=== PATIENT | male | born 1970 | race Caucasian/White ===

== ENCOUNTER 2020-04-17 17:31 | Emergency (ER) | payer OTHER ==
[2020-04-17 19:10] LABS: HEMOGLOBIN 13.4 gm/dl (14.0-17.5); RED BLOOD COUNT 4.37 M/UL (4.20-5.50); WHITE BLOOD COUNT 13.4 K/UL (4.5-11.0)
[2020-04-17 19:42] LABS: BUN/CREATININE RATIO 13 (0-10)
[2020-04-17] MEDS ORDERED: TESSALON PERLE100 MG PO (21:51)
[2020-04-17] MEDS ORDERED: ZITHROMAX500 MG PO (21:51)
[2020-04-17] MEDS ORDERED: MEDROL4 MG PO (21:51)
== END 2020-04-17 22:31 | disposition home or self-care (01) ==
LOC: ER1 17:31
PROVIDERS: Preventive Medicine Occupational Medicine
DX: B34.9 Viral infection, unspecified (principal); I10 Essential (primary) hypertension
CPT/HCPCS: 36415; 71045; 80053; 81001; 82550; 82553; 83690; 83874; 83880; 84484; 85025; 85379; 85652; 86140; 87086; 87635; 96374; 96375; 96376; 99284; C9113; J1100; Q9967

== ENCOUNTER 2020-04-21 11:07 | Inpatient (IN) | payer OTHER ==
[~2020-04-21] VITALS: Ht 172.7 cm; Wt 79.4 kg
[~2020-04-21 11:07] MED LIST: MEDROL4 MG PO; TESSALON PERLE100 MG PO; ZITHROMAX500 MG PO
[2020-04-21 12:48] LABS: HEMOGLOBIN 12.9 gm/dl (14.0-17.5); RED BLOOD COUNT 4.22 M/UL (4.20-5.50); WHITE BLOOD COUNT 16.8 K/UL (4.5-11.0)
[2020-04-21 13:08] LABS: BUN/CREATININE RATIO 11 (0-10)
[2020-04-21] MEDS ORDERED: HYDROCHLOROTH12.5 MG PO (15:39)
[2020-04-21] MEDS ORDERED: LISINOPRIL20 MG PO (15:39)
[2020-04-21] MEDS ORDERED: LOPRESSOR 50 MG50 MG PO (15:40)
[2020-04-21] MEDS ORDERED: ZESTRIL/PRINIVI10 MG PO (15:40)
[2020-04-21] MEDS ORDERED: CRESTOR5 MG PO (15:40)
[2020-04-21] MEDS ORDERED: ZYLOPRIM 100 M100 MG PO (15:41)
[2020-04-21] MEDS ORDERED: CLARITIN 10MG T10 MG PO (15:41)
[2020-04-21] MEDS ORDERED: VITAMIN D350 MCG PO (15:41)
[2020-04-22 03:49] LABS: HEMOGLOBIN 11.2 gm/dl (14.0-17.5); WHITE BLOOD COUNT 12.7 K/UL (4.5-11.0)
[2020-04-22 03:52] LABS: RED BLOOD COUNT 3.74 M/UL (4.20-5.50)
[2020-04-22 04:10] LABS: BUN/CREATININE RATIO 11 (0-10)
[2020-04-23 08:14] LABS: HBSAG SCREEN Negative (Negative); HEP A AB, IGM Negative (Negative); HEP B CORE AB, IGM Negative (Negative); HEP C VIRUS AB <0.1 (0.0-0.9)
== END 2020-04-22 13:05 | disposition home or self-care (01) | DRG 177 ==
LOC: ER1 11:07 → CDU 15:18
PROVIDERS: Physician Assistant; ADMIT Internal Medicine
DX: U07.1 COVID-19 (principal); J12.82 Pneumonia due to coronavirus disease 2019; D72.828 Other elevated white blood cell count; T38.0X5A Adverse effect of glucocorticoids and synthetic analogues, initial encounter; E87.6 Hypokalemia; R74.01 Elevation of levels of liver transaminase levels; I10 Essential (primary) hypertension; E78.5 Hyperlipidemia, unspecified; Z87.891 Personal history of nicotine dependence; Z82.49 Family history of ischemic heart disease and other diseases of the circulatory system; Z83.3 Family history of diabetes mellitus; Z80.8 Family history of malignant neoplasm of other organs or systems; Z79.899 Other long term (current) drug therapy; Z90.49 Acquired absence of other specified parts of digestive tract
CPT/HCPCS: 0240U; 71045; 74018; 76705; 80053; 80074; 81001; 82550; 82553; 83605; 83690; 83874; 84484; 85025; 87040; 90471; 93005; 96365; 96366; 96375; 96376; 99285; G0378; J0360; J0692; J3370; J7070